=== PATIENT | male | born 1975 | race Two or more races ===

== ENCOUNTER 2024-08-30 15:42 | Inpatient (IN) | payer OTHER ==
[~2024-08-30] VITALS: Ht 190.5 cm; Wt 118.5 kg
[2024-08-30] MEDS ORDERED: 0.9% SODIUM CHLORIDE 10 ML SYRINGE IVP ONE (16:06)
[2024-08-30] MEDS ORDERED: IOHEXOL 300 MG/ML 100 ML VIAL ONE (16:06)
[2024-08-30] MEDS ORDERED: SODIUM CHLORIDE 0.9% 100 ML ONE (16:07)
[2024-08-30 16:10] LABS: PLATELET COUNT (AUTO) 252 K/uL (150-450); RED BLOOD CELL COUNT(AUTO) 3.62 MIL/uL (4.50-5.90); RED CELL DISTRIBUTION WIDTH 16.3 % (11.5-14.5); WHITE BLOOD COUNT (AUTO) 4.6 K/uL (4.5-11.0)
[2024-08-30 16:19] LABS: CALCIUM, TOTAL 8.9 mg/dL (8.8-10.5); CREATININE 1.18 mg/dL (0.60-1.30); GLOMERULAR FILTR. RATE CALC > 60 mL/min (>60); GLUCOSE,RANDOM 89 mg/dL (70-110); SODIUM SERUM 144 mmol/L (136-145); UREA NITROGEN, BLOOD 26 mg/dL (7-18)
[2024-08-30 16:22] LABS: ALCOHOL, BLOOD (SERUM) < 3 mg/dL (0-10)
[2024-08-30 16:24] LABS: ASPARTATE AMINOTRANSFERASE 19 U/L (15-37); TOTAL PROTEIN, SERUM 7.7 g/dL (6.4-8.2)
[2024-08-30] MEDS: LevETIRAcetam 1,000 MG in DEXTROSE 5%-WATER 100 ML IV ONE (16:24)
[2024-08-30 16:26] LABS: CHOL/HDL RATIO 2.2 (4.2-7.3); LDL CHOL (CALC.) 28.0 mg/dL (0-130)
[2024-08-30 16:29] LABS: TROPONIN I-HIGH SENSITIVITY 47 ng/L (<76)
[2024-08-30] MEDS: ASPIRIN 325 MG TABLET PO ONE (16:51)
[2024-08-30 16:53] LABS: APPEARANCE,URINE CLEAR (CLEAR); GLUCOSE, URINE (UA) NEGATIVE (NEGATIVE); LEUKOCYTE ESTERASE ,URINE NEGATIVE (NEGATIVE); NITRATE,URINE NEGATIVE (NEGATIVE); OCCULT BLOOD,URINE NEGATIVE (NEGATIVE); PH,URINE DRUG SCREEN 5.5 (5.0-8.0); SPECIFIC GRAVITIY, URINE 1.044 (1.003-1.030)
[2024-08-30 16:55] LABS: ALCOHOL, URINE DRUG SCREEN NEGATIVE (NEGATIVE); AMPHET/METH SCREEN,URINE NEGATIVE (NEGATIVE); BARBITURATE SCREEN, URINE NEGATIVE (NEGATIVE); CANNABINOID SCREEN,URINE NEGATIVE (NEGATIVE); COCAINE SCREEN,URINE NEGATIVE (NEGATIVE); METHADONE SCREEN, URINE NEGATIVE (NEGATIVE)
[2024-08-30 17:13] LABS: SQUAMOUS EPITHELIAL CELL,UR Rare /LPF (None Seen)
[2024-08-30] MEDS: MORPHINE SULFATE 2 MG/ML SYRINGE IVP ONE (17:58)
[2024-08-30 20:49] VITALS: BP 147/105; PULSE 64; RESP 20; TEMP 97.9; O2SAT 99
[2024-08-30 22:19] LABS: TROPONIN I-HIGH SENSITIVITY 48 ng/L (<76)
[2024-08-31] VITALS: BP 137/102; PULSE 61; RESP 19; TEMP 97.9; O2SAT 97
[2024-08-31 04:00] VITALS: BP 117/89; PULSE 60; RESP 19; TEMP 97.3; O2SAT 98
[2024-08-31] MEDS: ACETAMINOPHEN 325 MG TABLET PO PRN (05:06)
[2024-08-31 06:28] LABS: PLATELET COUNT (AUTO) 233 K/uL (150-450); RED BLOOD CELL COUNT(AUTO) 3.58 MIL/uL (4.50-5.90); RED CELL DISTRIBUTION WIDTH 16.5 % (11.5-14.5); WHITE BLOOD COUNT (AUTO) 4.6 K/uL (4.5-11.0)
[2024-08-31 06:54] LABS: CALCIUM, TOTAL 8.5 mg/dL (8.8-10.5); CREATININE 1.13 mg/dL (0.60-1.30); GLOMERULAR FILTR. RATE CALC > 60 mL/min (>60); GLUCOSE,RANDOM 84 mg/dL (70-110); SODIUM SERUM 143 mmol/L (136-145); UREA NITROGEN, BLOOD 18 mg/dL (7-18)
[2024-08-31 06:55] LABS: TROPONIN I-HIGH SENSITIVITY 51 ng/L (<76)
[2024-08-31] MEDS: ATORVASTATIN CALCIUM 40 MG TABLET PO SCH (09:00)
[2024-08-31] MEDS: ASPIRIN 81 MG CHEWABLE TABLET PO SCH (09:00)
[2024-08-31 11:34] VITALS: BP 132/95; PULSE 60; RESP 20; TEMP 98; O2SAT 98
[2024-08-31 15:44] VITALS: BP 150/99; PULSE 60; RESP 18; TEMP 97.9; O2SAT 100
[2024-08-31 20:25] VITALS: BP 117/80; PULSE 61; RESP 19; TEMP 98.2; O2SAT 98
[2024-09-01 00:05] VITALS: BP 134/105; PULSE 62; RESP 17; TEMP 97.7; O2SAT 98
[2024-09-01 05:12] VITALS: BP 143/93; PULSE 60; RESP 17; TEMP 99; O2SAT 97
[2024-09-01 07:15] VITALS: BP 145/98; PULSE 61; RESP 18; TEMP 97.9; O2SAT 97
[2024-09-01] MEDS ORDERED: ACETAMINOPHEN 325 MG TABLET PO PRN (11:00)
[2024-09-01] MEDS ORDERED: ALBUTEROL SULFATE 2.5 MG/0.5 ML NEB SOLUTION NEB PRN (11:00)
[2024-09-01] MEDS ORDERED: IPRATROPIUM BROMIDE 0.5 MG/2.5 ML NEB SOLUTION NEB PRN (11:00)
[2024-09-01] MEDS ORDERED: HYDROCODONE/ACETAMINOPHEN 5-325 MG TABLET PO PRN (11:00)
[2024-09-01] MEDS ORDERED: ZOLPIDEM TARTRATE 5 MG TABLET PO PRN (11:00)
[2024-09-01] MEDS ORDERED: MAGNESIUM HYDROXIDE SUSPENSION 30 ML UDCUP PO PRN (11:00)
[2024-09-01] MEDS ORDERED: BISACODYL 10 MG RECTAL RECTAL SUPPOSITORY PR PRN (11:00)
[2024-09-01] MEDS ORDERED: ONDANSETRON HCL 4 MG/2 ML VIAL IVP PRN (11:00)
[2024-09-01] MEDS ORDERED: GABA-1181 PO (11:01)
[2024-09-01] MEDS ORDERED: AMLO-257 PO (11:01)
[2024-09-01] MEDS ORDERED: LEVE250T81 PO (11:01)
[2024-09-01] MEDS ORDERED: ATOR40TA28 PO (11:08)
[2024-09-01] MEDS ORDERED: ASPI-1450 PO (11:08)
[2024-09-01] MEDS ORDERED: IBUP-1493 PO (11:08)
[2024-09-01 11:39] LABS: CHOL/HDL RATIO 2.1 (4.2-7.3); LDL CHOL (CALC.) 37.0 mg/dL (0-130)
[2024-09-01] MEDS: ATORVASTATIN CALCIUM 40 MG TABLET PO ONE (12:09)
[2024-09-01] MEDS: CLOPIDOGREL BISULFATE 75 MG TABLET PO ONE (12:09)
[2024-09-01] MEDS: GABAPENTIN 300 MG CAPSULE PO ONE (12:09)
[2024-09-01] MEDS ORDERED: APIX5TAB PO (13:57)
[2024-09-01 15:42] VITALS: BP 137/98; PULSE 65; RESP 20; TEMP 98.1; O2SAT 99
[2024-09-01] MEDS ORDERED: HEPARIN SODIUM,PORCINE 5,000 UNITS/ML VIAL SQ SCH (16:00)
[2024-09-01] MEDS ORDERED: GABAPENTIN 300 MG CAPSULE PO SCH (21:00)
[2024-09-02] MEDS ORDERED: ATORVASTATIN CALCIUM 40 MG TABLET PO SCH (09:00)
[2024-09-02] MEDS ORDERED: CLOPIDOGREL BISULFATE 75 MG TABLET PO SCH (09:00)
[2024-09-02] MEDS ORDERED: PANTOPRAZOLE SODIUM 40 MG DR TABLET PO SCH (09:00)
== END 2024-09-01 16:55 | disposition home or self-care (01) | DRG 45 ==
LOC: EMS 15:42 → EDH 16:40 → 5S 20:41
PROVIDERS: ADMIT Hospitalist; ATTEND Hospitalist
DX: I63.9 Cerebral infarction, unspecified (principal); G81.94 Hemiplegia, unspecified affecting left nondominant side; G40.909 Epilepsy, unspecified, not intractable, without status epilepticus; I10 Essential (primary) hypertension; I48.91 Unspecified atrial fibrillation; R29.706 NIHSS score 6; Z79.01 Long term (current) use of anticoagulants; Z95.0 Presence of cardiac pacemaker; Z88.5 Allergy status to narcotic agent; Z88.8 Allergy status to other drugs, medicaments and biological substances
CPT/HCPCS: 70496; 70498; 71045; 80048; 80053; 80061; 80307; 81001; 82948; 83036; 83735; 84484; 85025; 85610; 85730; 86850; 86900; 86901; 92610; 93005; 93306; 97112; 97116; 97162; 97167; 97530; 97535; 99291; G0480; J0712; J2270; J7050; J7060; Q9967; 36415-L1; 36415-TC; 70450; 70450-TC